=== PATIENT | female | born 1975 | race Caucasian/White ===

== ENCOUNTER 2017-05-12 11:20 | Emergency (ER) | payer SELFPAY ==
[2017-05-12] MEDS ORDERED: Tetan/Diph/Pertus SYR(Tdap)* 0.5 ML SYR(BOOSTRIX) use SYR IM ONE (11:51)
--- NOTE | 2017-05-12 11:59 | ED ---
Skin Complaint - HPI Summary HPI Summary: Rt hand dominant pt here w/ cat scratch to Lt dorsal hand while at work today. Bled. Washed immediately with soap and water and then with betadine. Dressed with triple antibiotic and sterile gauze. She denies numbness, tingling, weakness. She works at a veterinary office. She is UTD w/ rabies vaccine however does not believe she's UTD w/ tetanus. Declines pain medication as she states she's been scratched worse in the past. - History of Current Complaint Chief Complaint: EDAnimalBite Time Seen by Provider: 05/12/17 11:44 Stated Complaint: CAT SCRATCH Hx Obtained From: Patient Pain Intensity: 1 - Allergy/Home Medications Allergies/Adverse Reactions: Allergies Allergy/AdvReac Type Severity Reaction Status Date / Time Latex Allergy Unknown Verified 11/13/14 05:13 Reaction Details PMH/Surg Hx/FS Hx/Imm Hx Previously Healthy: Yes Endocrine/Hematology History: Denies: Hx Anticoagulant Therapy, Hx Blood Disorders, Hx Diabetes, Autoimmune Disease - Immunization History Immunizations Up to Date: No - need tetanus; rabies is UTD Infectious Disease History: No Infectious Disease History: Denies: Hx of Known/Suspected MRSA, Traveled Outside the [place] in Last 30 Days - Family History Known Family History: Positive: None - Social History Occupation: Employed Part-time Lives: With Family Alcohol Use: None Hx Substance Use: No Substance Use Type: Reports: None Hx Tobacco Use: No Smoking Status (MU): Never Smoked Tobacco Review of Systems Positive: no symptoms reported Musculoskeletal: Negative Skin: Other - see HPI Neurological: Negative Psychological: Normal All Other Systems Reviewed And Are Negative: Yes Physical Exam Triage Information Reviewed: Yes Vital Signs On Initial Exam: Initial Vitals Temp Pulse Resp BP Pulse Ox 98.0 F 64 15 116/74 100 05/12/17 11:23 05/12/17 11:23 05/12/17 11:23 05/12/17 11:23 05/12/17 11:23 Vital Signs Reviewed: Yes Appearance: Positive: Well-Appearing, No Pain Distress, Well-Nourished Skin: Positive: Warm - linear laceration over Lt dorsal hand, overlying 2nd MCP - no bleeding, no tendon, no FB observed Head/Face: Positive: Normal Head/Face Inspection Eyes: Positive: EOMI ENT: Positive: Hearing grossly normal Respiratory/Lung Sounds: Positive: Breath Sounds Present Cardiovascular: Positive: Pulses are Symmetrical in both Upper and Lower Extremities Musculoskeletal: Positive: Normal, Strength/ROM Intact Neurological: Positive: Normal, Sensory/Motor Intact, Alert, Oriented to Person Place, Time, CN Intact II-III Psychiatric: Positive: Normal Procedures - Laceration/Wound Repair 1 Location: upper extremity - Lt Dorsal hand Description: Linear Anesthesia: Local, Lido Length, Depth and Shape: 2cm x 3mm Betadine Prep?: Yes Irrigated w/ Saline (ccs): 250 - hibaclens with sterile water solution Laceration/Wound Explored: clean Closure: Single Layer Suture Type: Nylon - 5-0 Number of Sutures: 1 - loose closure to allow for soaking/drainage Layer Closure?: No Sterile Dressing Applied?: Yes - triple anbx ointment + gauze + RAJESH wrap + splint Diagnostics - Vital Signs Vital Signs Temp Pulse Resp BP Pulse Ox 05/12/17 11:25 98.0 F 62 15 116/74 100 05/12/17 11:23 98.0 F 64 15 116/74 100 - Laboratory Lab Statement: Any lab studies that have been ordered have been reviewed, and results considered in the medical decision making process. Course/Dx - Course Course Of Treatment: Pt scratched by cat at work earlier today. Cleaned with soap and water as well as betadine immediately after. Soaked and irrigated here as well. Offered pt anbx prophylaxis however she declined as she could be as she and her have been trying. She's 1 week away from [facility] so too early to test. Also discussed loose closure to allow for cleaning and drainage as needed. Education about s/sx of infection - pt aware she needs to monitor closely and f/u w/ PCP for rechecks. If infectious sx present, will seek medical attention KRISTIN. - Diagnoses Provider Diagnoses: Cat scratch of left hand Discharge - Discharge Plan Condition: Stable Disposition: HOME Patient Education Materials: Laceration (ED), Cat Scratch Disease (ED) Forms: *Work Release Referrals: Cornell FERGUSON,Salvatore Austin [Primary Care Provider] - Additional Instructions: You have sustained a cat scratch to your hand. It is important that you keep this wound clean to prevent infection. You may soak your hand 2 x day in a soapy soak for 10 minutes - rinse well and pat dry then reapply triple antibiotic ointment and fresh gauze dressing. Use your finger splint to prevent opening wound as it heals. Your suture will need to be removed in 10-14 days. Call your PCP to schedule follow-up appointment in 3 days for wound recheck or go to urgent care for recheck. You may rest, ice, elevate and take ibuprofen for pain, swelling *If you develop redness, swelling, purulent drainage, streaking, fever, chills, seek medical attention KRISTIN
[2017-05-12 13:45] VITALS: BP 110/64
== END 2017-05-12 13:45 | disposition home or self-care (01) ==
LOC: ED 11:20
DX: S60.511A Abrasion of right hand, initial encounter (principal); W55.03XA Scratched by cat, initial encounter; Y92.9 Unspecified place or not applicable
CPT/HCPCS: 12001; 90471; 90715; 99281